=== PATIENT | female | born 1945 | race Hispanic/Latino ===

== ENCOUNTER → 2021-12-06 | Outpatient (CLI) | payer MEDICARE | LOC: RAD 11:08 | PROVIDERS: ATTEND Internal Medicine | DX: M54.2 Cervicalgia (principal) | CPT/HCPCS: 72050 ==

== ENCOUNTER → 2021-12-21 | Outpatient (CLI) | payer MEDICARE | LOC: MAMMO 11:46 | PROVIDERS: ATTEND Internal Medicine | DX: Z12.31 Encounter for screening mammogram for malignant neoplasm of breast (principal); M85.88 Other specified disorders of bone density and structure, other site | CPT/HCPCS: 77080 ==